=== PATIENT | female | born 1960 | race Caucasian/White ===

== ENCOUNTER 2019-02-09 12:15 | Day surgery (SDC) | payer OTHER ==
[2019-02-09] MEDS ORDERED: PROPOFOL 20 ML (14:54)
== END 2019-02-09 15:15 | disposition home or self-care (01) ==
LOC: GIL 12:15
DX: Z12.11 Encounter for screening for malignant neoplasm of colon (principal); K64.8 Other hemorrhoids
CPT/HCPCS: 45380; 88305